=== PATIENT | female | born 1965 | race Caucasian/White ===

== ENCOUNTER → 2019-04-08 | Outpatient (CLI) | payer OTHER ==
[2019-04-10 15:07] LABS: HPV 16 Negative (Negative); HPV 18 Negative (Negative); HPV OTHER HR TYPES Negative (Negative)
== END | disposition home or self-care (01) ==
LOC: LAB 09:35 → LAB SHORT 09:35
PROVIDERS: Nurse Practitioner
DX: Z01.419 Encounter for gynecological examination (general) (routine) without abnormal findings (principal)
CPT/HCPCS: 87624; G0145

== ENCOUNTER 2021-03-25 07:00 | Day surgery (SDC) | payer OTHER ==
[~2021-03-25] VITALS: Ht 162.6 cm; Wt 79.1 kg
[2021-03-25] MEDS ORDERED: SERT100 PO (08:02)
[2021-03-25] MEDS ORDERED: LEVSOD75 PO (08:02)
== END 2021-03-25 12:35 | disposition home or self-care (01) ==
LOC: ORSCSDS 07:00
PROVIDERS: Orthopaedic Surgery
PROC: 0PSJ04Z Reposition Left Radius with Internal Fixation Device, Open Approach (ICD-10-PCS; principal; 2021-03-25 08:30)
DX: S52.562A Barton's fracture of left radius, initial encounter for closed fracture (principal); E03.9 Hypothyroidism, unspecified; Z79.899 Other long term (current) drug therapy
CPT/HCPCS: A9270; C1713; J0171; J0690; J1100; J2250; J2405; J2704; J3010; J7120

== ENCOUNTER → 2023-08-02 | Outpatient (CLI) | payer OTHER ==
[~2023-08-02] MED LIST: LEVSOD75 PO; SERT100 PO
== END | disposition home or self-care (01) ==
LOC: LAB SHORT 11:59 → LAB 11:59
DX: N39.0 Urinary tract infection, site not specified (principal)
CPT/HCPCS: 87086

== ENCOUNTER → 2024-09-15 | Outpatient (CLI) | payer OTHER | END | disposition home or self-care (01) | LOC: LAB 11:07 → LAB SHORT 11:07 | DX: N39.0 Urinary tract infection, site not specified (principal) | CPT/HCPCS: 87086 ==